=== PATIENT | female | born 1975 | race Caucasian/White ===

== ENCOUNTER 2016-06-20 06:39 | Day surgery (SDC) | payer OTHER ==
[2016-06-17 13:46] VITALS: BMI 29.4
[2016-06-20] VITALS (9 sets, daily range): BP systolic 116–133; BP diastolic 59–82; PULSE 64–78; RESP 15–22; Ht 157.5 cm; Wt 76.0 kg
[~2016-06-20] VITALS: Ht 157.5 cm; Wt 76.0 kg
[2016-06-20] MEDS ORDERED: LACTATED RINGER'S 1,000 ML IV* SCH (07:00)
[2016-06-20] MEDS ORDERED: PROPOFOL 20 ML ONE (08:21)
[2016-06-20] MEDS ORDERED: LIDOCAINE 2% (SDV) 5 ML INJ ONE (08:21)
[2016-06-20] MEDS ORDERED: MIDAZOLAM 1 MG/ML 2 ML INJ ONE (08:22)
[2016-06-20] MEDS ORDERED: ONDANSETRON 4 MG INJ ONE ×2 (08:22→10:50)
[2016-06-20] MEDS ORDERED: FENTAnyl 50 MCG/ML VIAL ONE (08:22)
[2016-06-20] MEDS ORDERED: DEXAMETHASONE 4 MG/ML 1 ML INJ ONE (08:25)
[2016-06-20] MEDS ORDERED: FAMOTIDINE 20 MG INJ ONE (08:26)
[2016-06-20] MEDS ORDERED: CEFAZOLIN 1 GM INJ ONE (08:26)
--- NOTE | 2016-06-20 09:49 | HPN ---
Date/Time of Note Date/Time of Note DATE: 06/20/16 TIME: 09:48 Interval H&P Admission Note Pt. seen H&P reviewed: No system changes GUERA STOREY MD June 20, 2016 09:49
[2016-06-20] MEDS ORDERED: KETOROLAC 30 MG INJ ONE (10:19)
[2016-06-20] MEDS ORDERED: PROPOFOL 60 ML ONE (10:19)
--- NOTE | 2016-06-20 10:58 | PD.PPDC ---
[employer] Discharge Instruction Diagnosis Final Diagnosis: svere menometrorrhagia Condition Patient Condition: Stable Diet Diet: Resume Regular Diet Activity/Restrictions Activity: June Shower Restrictions: No Sexual Activity Nothing in the Vagina No Filer No Tampons, douche Follow-up Follow-up with Physician: 2, Week/Weeks Return to clinic for [facility] Instructions: Fever greater than 101 Chills Worsening abdominal pain Excessive Vaginal Bleeding More than 2 pads per hour Unable to tolerate diet GUERA STOREY MD June 20, 2016 10:58
[2016-06-20] MEDS ORDERED: METOCLOPRAMIDE 10 MG INJ IV PRN (11:00)
[2016-06-20] MEDS ORDERED: PROCHLORPERAZINE 10 MG INJ IV PRN (11:00)
[2016-06-20] MEDS ORDERED: HYDROmorphONE (0.2 MG/ML) 10ML SYG IV PRN (11:00)
[2016-06-20] MEDS ORDERED: MEPERIDINE 25 MG INJ IV PRN (11:00)
[2016-06-20] MEDS ORDERED: FENTAnyl 50 MCG/ML VIAL IV PRN (11:00)
[2016-06-20] MEDS ORDERED: KETOROLAC 30 MG INJ IV ONE (11:00)
--- NOTE | 2016-06-23 10:29 | OPR ---
DATE OF OPERATION: 06/20/2016 PREOPERATIVE DIAGNOSIS: Menometrorrhagia. POSTOPERATIVE DIAGNOSIS: See pathological report. OPERATION PERFORMED: Hysteroscopic endometrial ablation, hydrothermal. PROCEDURE: Under appropriate induction of general anesthesia, the patient was placed in dorsal lith otomy position. The perineal area and vagina wall was prepped and draped in usual aseptic manner. On inspection, external genitalia revealed no gross abnormality. Bimanual examination, uterus felt to be slightly increased in size, form and consistency. There was no palpable adnexal pathology. W eighted speculum was introduced and anterior lip of the cervix was grasped with a single tooth tenac ulum. Os was dilated up to 7 and the hydrothermal ablation cassette was connected to the normal alejandra ine and inflow/outflow, and the hysteroscope was inserted, going into the endocervical canal and vis ualized and took a couple of pictures prior to the procedure. There was no leak, completely sealed, and the pressure gauge was okay to go ahead and start the procedure. I advanced the hysteroscope a nd both ostium were seen and the fundus was visualized. There was no lesion visualized. The proced ure was initiated and ablation started at 80 degrees and for 10 minutes, then followed by 2 minutes of cooling and the procedure was finished with obtaining good ablation. Prior to the instruments be ing removed, several pictures were taken. The instruments were removed from the operative field and patient withstood procedure well. Fluid deficit is 0. The patient was sent to recovery room in st able condition. Dictated By: AMANDA SAN/GILA Conf#: [id number] DID#: [id number]
== END 2016-06-20 12:40 | disposition home or self-care (01) ==
LOC: SDS 06:39
PROVIDERS: ATTEND Obstetrics & Gynecology
DX: N92.1 Excessive and frequent menstruation with irregular cycle (principal)
CPT/HCPCS: 58563; 84703; J0690; J1100; J1885; J2250; J2405; J2765; J3010; Z7512; Z7610